=== PATIENT | female | born 1930 | race Caucasian/White ===

== ENCOUNTER → 2016-08-18 | Outpatient (CLI) | payer MEDICARE | LOC: KOH-I 10:47 | DX: M54.5 Low back pain (principal); M47.816 Spondylosis without myelopathy or radiculopathy, lumbar region | CPT/HCPCS: 72110 ==

== ENCOUNTER → 2016-12-14 | Outpatient (CLI) | payer MEDICARE | LOC: KOH-I 15:27 | DX: M25.511 Pain in right shoulder (principal) | CPT/HCPCS: 73030 ==